=== PATIENT | male | born 1950 | race Caucasian/White ===

== ENCOUNTER → 2016-12-17 | Outpatient (CLI) | payer BC ==
[2016-12-17 10:57] LABS: ALT 132 U/L (21-72); AST 83 U/L (17-59); Alkaline Phosphatase 80 U/L (38-126); Anion Gap 12 mmol/L; Blood Urea Nitrogen 10 mg/dL (9-20); Calcium 9.5 mg/dL (8.4-10.2); Carbon Dioxide 29 mmol/L (22-30); Chloride 102 mmol/L (98-107); Cholesterol 90 mg/dL (<200); Glucose 125 mg/dL (74-99); HDL Cholesterol 26 mg/dL (40-60); Non-African American GFR(MDRD) >60 (>60 ml/min/1.73 sqM); Potassium 4.5 mmol/L (3.5-5.1); Sodium 143 mmol/L (137-145); Total Protein 7.7 g/dL (6.3-8.2); Triglycerides 191 mg/dL (<150)
[2016-12-17 11:13] LABS: Hemoglobin A1C 6.6 % (4.2-6.1)
== END | disposition home or self-care (01) ==
LOC: LABWHC1 10:03
PROVIDERS: ATTEND Internal Medicine Endocrinology, Diabetes & Metabolism
DX: E11.65 Type 2 diabetes mellitus with hyperglycemia (principal); E78.5 Hyperlipidemia, unspecified; I10 Essential (primary) hypertension
CPT/HCPCS: 36415; 80053; 80061; 82043; 83036

== ENCOUNTER → 2017-01-03 | Outpatient (CLI) | payer BC ==
--- NOTE | 2017-01-03 14:51 | PN ---
DATE OF SERVICE: 01/03/2017 A 66-year-old gentleman who has been followed in the Sleep Center for treatment of obstructive sleep apnea-hypopnea syndrome. Patient continued to use his CPAP equipment every night for the whole night. He bought battery pack and even if he traveled he used to take his machine and battery pack with him and continue to use equipment without any significant problem. During previous visit he had some issues related to sinusitis but at that time it was treated and no problem recently. [place] Sleepiness Scale today is 1. MEDICATIONS: Metformin, simvastatin, clonidine, triamterene, amlodipine, benazepril, metoprolol, vitamin D, other vitamin supplements, baby aspirin. During the physical exam, patient in no distress. BP 140/86, HR 63, RR 16, height 70 and 1/2, weight 240.0, BMI 34.0, oxygen saturation at room air 95%. OROPHARYNX: Low position of soft palate. NECK: Supple. No JVD, Thyroid is not palpable. LUNGS: Clear to percussion and to auscultation. Good air exchange. No wheezing or rhonchi. HEART: S1, S2 regular. No murmurs, gallops, or rubs. ABDOMEN: Soft and nontender. Bowel sounds are present. No organomegaly appreciated. MINING TECHNICIAN: Awake, alert, and oriented x3. Cranial nerves 2 to 7 intact. There is no fasciculation or atrophy noted. No focal deficits observed. IMPRESSION: 1. Obstructive sleep apnea-hypopnea syndrome. Patient continued to use his CPAP equipment with a CPAP pressure of 10 cm of water without any problem at the present time. 2. Obesity. 3. Diabetes mellitus. 4. Hyperlipidemia. 5. Hypertension. 6. History of sinusitis. 7. Status post spontaneous pneumothorax at age of 19. PLAN: 1. Continue treatment with CPAP every night for the whole night. 2. Losing weight. Patient lost about 1 pound since previous visit. 3. Sleep hygiene with regular time bed for at least 8 hours. 4. No driving if feeling any sleepiness. 5. We discussed how to use paradoxical intention technique for treatment of some episodes of psychophysiological insomnia when patient sometimes wakes up in the middle of the night and has difficulties to fall asleep again. At the time, I do not think it is necessary to use any additional medications for that reason. Thank you very much for allowing me to participate in the management of your patient. Sincerely, Jean-Paul Herbert MD, PhD, FAASM Diplomat of [place] Board of Sleep Medicine, Sleep Medicine Board by [place] Board [employer] Medical Specialities [place] Board of Internal Medicine Cattle Producers of [facility] [place]
== END | disposition home or self-care (01) ==
LOC: SLEEP 11:23
PROVIDERS: ATTEND Internal Medicine
DX: G47.33 Obstructive sleep apnea (adult) (pediatric) (principal); E66.9 Obesity, unspecified; Z68.34 Body mass index [BMI] 34.0-34.9, adult; E11.9 Type 2 diabetes mellitus without complications; E78.5 Hyperlipidemia, unspecified; I10 Essential (primary) hypertension; Z79.82 Long term (current) use of aspirin; Z79.84 Long term (current) use of oral hypoglycemic drugs; Z79.899 Other long term (current) drug therapy

== ENCOUNTER → 2017-06-17 | Outpatient (CLI) | payer BC ==
[2017-06-17 09:32] LABS: ALT 62 U/L (21-72); AST 37 U/L (17-59); Alkaline Phosphatase 78 U/L (38-126); Anion Gap 12 mmol/L; Blood Urea Nitrogen 13 mg/dL (9-20); Calcium 9.6 mg/dL (8.4-10.2); Carbon Dioxide 26 mmol/L (22-30); Chloride 102 mmol/L (98-107); Cholesterol 117 mg/dL (<200); Glucose 108 mg/dL (74-99); HDL Cholesterol 35 mg/dL (40-60); Non-African American GFR(MDRD) >60 (>60 ml/min/1.73 sqM); Sodium 140 mmol/L (137-145); Total Protein 8.2 g/dL (6.3-8.2)
[2017-06-17 12:02] LABS: Hemoglobin A1C 6.6 % (4.2-6.1)
[2017-06-17 17:18] LABS: Urine Creatinine 21.9 mg/dL
== END | disposition home or self-care (01) ==
LOC: LABWHC1 08:46
PROVIDERS: ATTEND Internal Medicine Endocrinology, Diabetes & Metabolism
DX: E78.5 Hyperlipidemia, unspecified (principal); E11.65 Type 2 diabetes mellitus with hyperglycemia
CPT/HCPCS: 36415; 80053; 80061; 82043; 82570; 83036; 84443

== ENCOUNTER → 2017-07-18 | Outpatient (CLI) | payer BC ==
--- NOTE | 2017-07-18 18:05 | PN ---
PROGRESS NOTE DATE OF SERVICE: 07/18/2017 This patient is a 66-year-old gentleman who has been followed in the sleep center for treatment of obstructive sleep apnea-hypopnea syndrome. The patient continues to use his CPAP equipment every night. [place] Sleepiness Scale today is 0. I checked his CPAP unit. It showed that the patient has been using the equipment 30 out of 30 nights for more than 4 hours. Average usage is 7 hours. CPAP pressure is 9 cm of water. Leak is 11 L/minute, which is in acceptable range. Apnea-hypopnea index is only 0.7, which is totally in normal range. CURRENT MEDICATIONS: 1. Metformin. 2. Simvastatin. 3. Clonidine. 4. Triamterene. 5. Amlodipine. 6. Benazepril. 7. Metoprolol. 8. Vitamin D. 9. Baby aspirin. PHYSICAL EXAM: Pleasant gentleman without distress. VITALS SIGNS: BP 147/78, HR 68, RR 16, height 5 feet 10 inches, weight 238, BMI 34, temperature 97.8, oxygen saturation at room air 98%. HEENT: PERRLA, EOMI. Evaluation of oropharynx showed tongue protrudes midline. Extremely low position of soft palate. NECK: Supple. No JVD. Thyroid is not palpable. LUNGS: Clear to percussion and to auscultation. Good air exchange. No wheezing or rhonchi. HEART: S1, S2 with some irregularities. Slight systolic murmur. ABDOMEN: Obese. EXTREMITIES: No clubbing or cyanosis. DATA REVIEWER: Awake, alert and oriented x3. Cranial nerves 2 to 7 intact. There is no fasciculation or atrophy noted. No focal deficits observed. IMPRESSION: 1. Obstructive sleep apnea-hypopnea syndrome, under control with CPAP at 9 cm of water. Patient demonstrated 100% compliance with treatment, benefitting from treatment. 2. Obesity; BMI 34. 3. Diabetes mellitus. 4. Hypertension. 5. Hyperlipidemia. 6. History of sinusitis. 7. History of pneumothorax in the past. PLAN: 1. Continue treatment with CPAP every night for the whole night. 2. Continue losing weight. At present the patient has lost 2 pounds of weight since previous visit. 3. Sleep hygiene with regular time in bed for at least 8 hours. 4. No driving if feeling sleepiness. 5. Follow-up visit in 1 year or earlier if patient has any problems. Thank you very much for allowing me to participate in management of your patient. Sincerely, Jean-Paul Herbert MD, PhD, FAASM Diplomat of [place] Board of Medical Specialties [place] Board of Internal Medicine Transmission Specialist of [facility] [place] TATIANA / GLENN: [id number] /
== END ==
LOC: SLEEP 13:03
PROVIDERS: ATTEND Internal Medicine
DX: G47.33 Obstructive sleep apnea (adult) (pediatric) (principal); E66.9 Obesity, unspecified; E11.9 Type 2 diabetes mellitus without complications; E78.5 Hyperlipidemia, unspecified; I10 Essential (primary) hypertension; J32.9 Chronic sinusitis, unspecified; J93.9 Pneumothorax, unspecified; Z68.34 Body mass index [BMI] 34.0-34.9, adult; Z79.899 Other long term (current) drug therapy; Z79.82 Long term (current) use of aspirin

== ENCOUNTER → 2017-12-19 | Outpatient (CLI) | payer BC, MEDICARE ==
[2017-12-19 10:13] LABS: ALT 106 U/L (21-72); AST 67 U/L (17-59); Albumin 4.5 g/dL (3.5-5.0); Alkaline Phosphatase 83 U/L (38-126); Anion Gap 13 mmol/L; Blood Urea Nitrogen 12 mg/dL (9-20); Calcium 9.9 mg/dL (8.4-10.2); Carbon Dioxide 28 mmol/L (22-30); Chloride 100 mmol/L (98-107); Cholesterol 135 mg/dL (<200); Glucose 174 mg/dL (74-99); HDL Cholesterol 37 mg/dL (40-60); LDL Cholesterol,Calculated 45 mg/dL (0-99); Potassium 4.4 mmol/L (3.5-5.1); Sodium 141 mmol/L (137-145); Total Bilirubin 1.2 mg/dL (0.2-1.3); Total Protein 7.8 g/dL (6.3-8.2); Triglycerides 266 mg/dL (<150)
[2017-12-19 18:47] LABS: Hemoglobin A1C 7.7 % (4.0-6.0)
== END | disposition home or self-care (01) ==
LOC: LABWHC1 09:27
PROVIDERS: ATTEND Internal Medicine Endocrinology, Diabetes & Metabolism
DX: E11.65 Type 2 diabetes mellitus with hyperglycemia (principal)
CPT/HCPCS: 36415; 80053; 80061; 82043; 82570; 83036; 84443

== ENCOUNTER → 2018-02-06 | Outpatient (CLI) | payer BC, MEDICARE ==
--- NOTE | 2018-02-06 16:04 | PN ---
PROGRESS NOTE DATE OF SERVICE: 02/06/2018 67-year-old gentleman has been followed in Sleep Center for treatment of obstructive sleep apnea-hypopnea syndrome. Patient continued successfully using CPAP equipment every night. No snoring with the machine. [place] Sleepiness Scale is 1. I checked his CPAP unit. Usage is 100% of the time, more than 4 hours. Average usage is 7.0 hours. Leak is 16 L/minute which is acceptable. Apnea-hypopnea index is only 1.9, which is totally normal. CPAP pressure is 9 cm of water. RAMP is off. Humidity is at 4. MEDICATIONS: Metformin, simvastatin, Clonidine, triamterene, amlodipine, benazepril, metoprolol, vitamin D supplement, baby aspirin. PHYSICAL EXAM: Patient in no distress. BP 149/82, HR 74, RR 18, height 5 feet 9 inches and weight 239.4, BMI 34.7, temperature 97.8, oxygen saturation at room air 97%. Extremely low position of soft palate. Abdomen slightly obese. Neck Supple, no JVD. Thyroid is not palpable. LUNGS Clear to percussion and to auscultation. Good air exchange. No wheezing or rhonchi. HEART S1, S2 regular. No murmurs, gallops, or rubs. ABDOMEN Soft and nontender. Bowel sounds are present. No organomegaly appreciated. EXTREMITIES No clubbing or cyanosis. DIET CLERK Awake, alert, and oriented X3. Cranial nerves 2 to 7 intact. There is no fasciculation or atrophy. noted. No focal deficits observed. IMPRESSION: 1. Obstructive sleep apnea-hypopnea syndrome, on full control with CPAP. The patient demonstrated 100% compliance with treatment benefitting from treatment. 2. Obesity, the patient has about the same weight during the last visit. 3. Diabetes mellitus. 4. Hypertension. 5. Hyperlipidemia. 6. History of sinusitis. 7. History of pneumothorax in the past. PLAN: 1. Prescription for all necessary CPAP supplies including mask, tube, filters. 2. Losing weight. 3. Sleep hygiene with regular time in bed for at least 8 hours. Continued to use CPAP equipment every night for the whole night. 4. Precautions related to driving. No driving if feeling sleepiness. Thank you very much for allowing me to participate in management of patient. MMODL / IJN: [id number] /
== END | disposition home or self-care (01) ==
LOC: SLEEP 14:43
PROVIDERS: ATTEND Internal Medicine
DX: G47.33 Obstructive sleep apnea (adult) (pediatric) (principal); E66.9 Obesity, unspecified; E11.9 Type 2 diabetes mellitus without complications; I10 Essential (primary) hypertension; E78.5 Hyperlipidemia, unspecified; Z68.34 Body mass index [BMI] 34.0-34.9, adult; Z87.09 Personal history of other diseases of the respiratory system; Z79.82 Long term (current) use of aspirin; Z79.84 Long term (current) use of oral hypoglycemic drugs; Z79.899 Other long term (current) drug therapy; Z99.89 Dependence on other enabling machines and devices

== ENCOUNTER → 2018-09-06 | Outpatient (CLI) | payer MEDICARE ==
[2018-09-06 16:33] LABS: Albumin 4.8 g/dL (3.80-4.90); Anion Gap 6.5 mmol/L (4.00-12.00); Calcium 9.6 mg/dL (8.7-10.3); Carbon Dioxide 31.5 mmol/L (21.6-31.8); Globulin 2.4 g/dL (2.1-3.7); LDL Cholesterol,Calculated 47.2 mg/dL (0.0-131.0); Potassium 4.4 mmol/L (3.5-5.5); Total Bilirubin 0.9 mg/dL (0.2-1.2); Total Protein 7.2 g/dL (6.2-8.2); VLDL Calculation 23.8 mg/dL (5.00-40.00)
[2018-09-06 20:10] LABS: Hemoglobin A1C 6.1 % (4.0-6.0)
== END | disposition home or self-care (01) ==
LOC: LABWHC1 08:45
PROVIDERS: ATTEND Ophthalmology Ophthalmic Plastic and Reconstructive Surgery
DX: E11.65 Type 2 diabetes mellitus with hyperglycemia (principal); G51.0 Bell's palsy
CPT/HCPCS: 36415; 80053; 80061; 82043; 82570; 82607; 83036; 84443

== ENCOUNTER → 2019-01-19 | Outpatient (CLI) | payer MEDICARE ==
[2019-01-19 16:22] LABS: Albumin 4.8 g/dL (3.80-4.90); Albumin/Globulin Ratio 2.29 (1.60-3.17); Anion Gap 9.7 mmol/L (4.00-12.00); Calcium 9.5 mg/dL (8.7-10.3); Carbon Dioxide 28.3 mmol/L (21.6-31.8); Globulin 2.1 g/dL (1.6-3.3); LDL Cholesterol,Calculated 45.2 mg/dL (0.0-131.0); Potassium 4.2 mmol/L (3.5-5.5); Total Bilirubin 1.2 mg/dL (0.2-1.2); Total Protein 6.9 g/dL (6.2-8.2); VLDL Calculation 30.8 mg/dL (5.00-40.00)
[2019-01-19 16:38] LABS: Hemoglobin A1C 6.6 % (4.0-6.0)
== END ==
LOC: LABWHC1 09:10
PROVIDERS: ATTEND Internal Medicine Endocrinology, Diabetes & Metabolism
DX: E11.9 Type 2 diabetes mellitus without complications (principal)
CPT/HCPCS: 36415; 80053; 80061; 82043; 82570; 83036; 84443

== ENCOUNTER → 2019-02-05 | Outpatient (CLI) | payer MEDICARE ==
--- NOTE | 2019-02-05 12:51 | SFUN ---
SLEEP CENTER FOLLOW UP NOTE DATE OF SERVICE: 02/05/2019 A 68-year-old gentleman who has been followed in the Sleep Center for treatment of obstructive sleep apnea-hypopnea syndrome. Patient continued to use his CPAP equipment every night for the whole night without any significant problems and he is getting his CPAP supplies in time. No snoring with the machine. No significant excessive daytime sleepiness. [place] Sleepiness Scale is 0. I checked his CPAP unit. Usage is 100% of the time more than 4 hours. Reading from the machine /30 nights for every 6.5 hours per night. Leak 22 L/minute, which is borderline. Apnea-hypopnea index is 1.1, which is normal range. MEDICATIONS: Metformin, simvastatin, clonidine, Dyazide which is triamterene hydrochlorothiazide, amlodipine, metoprolol, vitamin D supplement, aspirin, multivitamins, Restasis, eyedrops. PHYSICAL EXAM: Patient in no distress. BP 140/65, HR 57, RR 14, height 5 foot 10-3/4 inches, weight 231.2. Body mass index 32.4, temperature 97.7, oxygen saturation at room air 95%. OROPHARYNX: Extremely low position of soft palate. ABDOMEN: Slightly obese. Neck Supple, no JVD. Thyroid is not palpable. LUNGS Clear to percussion and to auscultation. Good air exchange. No wheezing or rhonchi. HEART S1, S2 regular. No murmurs, gallops, or rubs. EXTREMITIES No clubbing or cyanosis. MANUFACTURING ENGINEER CHIEF Awake, alert, and oriented X3. Cranial nerves 2 to 7 intact. There is no fasciculation or atrophy. noted. No focal deficits observed. IMPRESSION: 1. Obstructive sleep apnea-hypopnea syndrome. Patient demonstrated 100% compliance with treatment, benefitting from treatment. Respiration of full control with CPAP. 2. Obesity, patient lost 8 pounds since previous visit. 3. Diabetes mellitus. 4. Hypertension. 5. Hyperlipidemia. 6. History of sinusitis. 7. History of pneumothorax in the past. PLAN: 1. Patient will continue to use CPAP equipment every night for the whole night. 2. Continue losing weight. 3. Sleep hygiene with regular time in bed for at least 7-1/2 to 8 hours. 4. No driving if feeling sleepiness. 5. Prescription for all necessary CPAP supplies including mask, tube, filters. Thank you very much for allowing me to participate in management of your patient. Sincerely, Jean-Paul Herbert MD, PhD, FAASM Diplomat of [place] Board of Medical Specialties [place] Board of Internal Medicine Peer Educator of [facility] [place] MMCECI / GLENN: [id number] /
== END ==
LOC: SLEEP 11:18
PROVIDERS: ATTEND Internal Medicine
DX: G47.33 Obstructive sleep apnea (adult) (pediatric) (principal); E66.9 Obesity, unspecified; E11.9 Type 2 diabetes mellitus without complications; I10 Essential (primary) hypertension; E78.5 Hyperlipidemia, unspecified; Z87.09 Personal history of other diseases of the respiratory system; Z87.898 Personal history of other specified conditions; Z99.89 Dependence on other enabling machines and devices; Z79.84 Long term (current) use of oral hypoglycemic drugs; Z79.899 Other long term (current) drug therapy; Z79.82 Long term (current) use of aspirin

== ENCOUNTER → 2019-04-28 | Outpatient (CLI) | payer MEDICARE ==
[2019-04-28 12:15] LABS: Basophils # (A) 0.1 k/uL (0-0.2); Basophils % (A) 1 %; Eosinophils # (A) 0.3 k/uL (0-0.7); Eosinophils % (A) 3 %; HCT 48.3 % (39.0-53.0); Lymphocytes # (A) 1.6 k/uL (1.0-4.8); Lymphocytes % (A) 17 %; MCHC 33.1 g/dL (31.0-37.0); MCV 93.6 fL (80.0-100.0); Mean Platelet Volume 7.4; Monocytes # (A) 0.4 k/uL (0-1.0); Monocytes % (A) 5 %; Neutrophils % (A) 74 %; Platelet Count 218 k/uL (150-450); RBC 5.16 m/uL (4.30-5.90); RDW 13.1 % (11.5-15.5); WBC 9.4 k/uL (3.8-10.6)
[2019-04-28 12:59] LABS: Appearance,Urine Clear (Clear); Bilirubin,Urine Negative (Negative); Blood,Urine Negative (Negative); Color,Urine Light Yellow; Glucose,Urine (UA) Negative (Negative); Ketones,Urine Negative (Negative); Leukocyte Esterase,Urine Negative (Negative); Nitrite,Urine Negative (Negative); Protein,Urine Negative (Negative); Specific Gravity,Urine 1.007 (1.001-1.035); Urobilinogen,Urine <2.0 mg/dL (<2.0)
[2019-04-28 16:23] LABS: Iron Saturation 31.91 (15.00-50.00)
[2019-04-28 16:31] LABS: Vitamin D 25 Hydroxy 27.6 ng/mL (30.0-100.0)
[2019-04-28 16:47] LABS: African American GFR (CKD) 102.8 (60.0-200.0); Albumin 4.7 g/dL (3.80-4.90); Albumin/Globulin Ratio 1.68 (1.60-3.17); Anion Gap 10.7 mmol/L (4.00-12.00); BUN/Creat Ratio 16.67 Ratio (12.00-20.00); Calcium 9.8 mg/dL (8.7-10.3); Carbon Dioxide 26.3 mmol/L (21.6-31.8); Globulin 2.8 g/dL (1.6-3.3); LDL Cholesterol,Calculated 45.6 mg/dL (0.0-131.0); Phosphorus 3.6 mg/dL (2.4-5.1); Potassium 4.4 mmol/L (3.5-5.5); Total Bilirubin 1.2 mg/dL (0.3-1.2); Total Protein 7.5 g/dL (6.2-8.2); Uric Acid 6.6 mg/dL (3.7-8.7); VLDL Calculation 29.4 mg/dL (5.00-40.00)
[2019-04-28 17:27] LABS: Parathyroid Hormone Intact 61.2 pg/mL (14.0-72.0)
== END | disposition home or self-care (01) ==
LOC: LABWHC1 10:55
PROVIDERS: ATTEND Internal Medicine
DX: E11.65 Type 2 diabetes mellitus with hyperglycemia (principal); N18.2 Chronic kidney disease, stage 2 (mild); D63.1 Anemia in chronic kidney disease; N39.0 Urinary tract infection, site not specified; R80.9 Proteinuria, unspecified; E55.9 Vitamin D deficiency, unspecified; M10.9 Gout, unspecified; N25.81 Secondary hyperparathyroidism of renal origin; E11.22 Type 2 diabetes mellitus with diabetic chronic kidney disease
CPT/HCPCS: 36415; 80053; 80061; 81003; 82043; 82306; 82570; 82728; 83036; 83540; 83550; 83735; 83970; 84100; 84443; 84550; 85025

== ENCOUNTER → 2019-09-30 | Outpatient (CLI) | payer MEDICARE ==
--- NOTE | 2019-09-30 13:27 | US ---
EXAMINATION TYPE: US kidneys/renal and bladder DATE OF EXAM: 09/30/2019 COMPARISON: NONE CLINICAL HISTORY: N13.30 Unspecified hydronephrosis. Pt states h/o kidney stone, passed in January EXAM MEASUREMENTS: Right Kidney: 12.2 x 5.3 x 5.8 cm Left Kidney: 13.2 x 5.6 x 5.3 cm Right Kidney: Appeared wnl Left Kidney: Cyst upper pole= 1.7 x 1.3 x 1.4 cm/ possible parapelvic cyst= 2.2 x 1.4 x 1.7 cm Bladder: wnl Bilateral Jets seen: Yes Incidental findings gallstones and lobulated prostate Scanning of right kidney shows adjacent heterogeneous hyperechoic liver. Incidental shadowing gallsto ne. No hydronephrosis. Bladder satisfactorily distended. Prostate gland slightly bulging on bladder b ase, correlate clinically for BPH. Bilateral distal jets are seen. Left kidney shows diffuse thin-wal led cysts upper pole level and centrally mid to lower pole level. No hydronephrosis noted. IMPRESSION: No hydronephrosis or shadowing renal calculi identified bilaterally.
== END ==
LOC: RADUSWWP 12:43
PROVIDERS: ATTEND Urology
DX: N13.30 Unspecified hydronephrosis (principal)
CPT/HCPCS: 76770

== ENCOUNTER → 2019-12-14 | Outpatient (CLI) | payer MEDICARE ==
[2019-12-14 17:46] LABS: Chol/HDL Ratio 2.94; LDL Cholesterol,Calculated 38.6 mg/dL (0.0-131.0); VLDL Calculation 31.4 mg/dL (5.00-40.00)
[2019-12-14 17:47] LABS: African American GFR (CKD) 89.9 (60.0-200.0); Albumin 4.8 g/dL (3.80-4.90); Albumin/Globulin Ratio 2.09 (1.60-3.17); Anion Gap 8.9 mmol/L (4.00-12.00); Calcium 10.1 mg/dL (8.7-10.3); Carbon Dioxide 28.1 mmol/L (21.6-31.8); Globulin 2.3 g/dL (1.6-3.3); Non-African American GFR(CKD) 77.5 (60.0-200.0); Potassium 5.2 mmol/L (3.5-5.5); Total Bilirubin 0.7 mg/dL (0.2-1.2); Total Protein 7.1 g/dL (6.2-8.2)
[2019-12-14 20:41] LABS: Urine Creatinine 52.2 mg/dL
== END | disposition home or self-care (01) ==
LOC: LABWHC1 10:44
PROVIDERS: ATTEND Internal Medicine Endocrinology, Diabetes & Metabolism
DX: E11.9 Type 2 diabetes mellitus without complications (principal)
CPT/HCPCS: 36415; 80053; 80061; 82043; 82570; 83036; 84443

== ENCOUNTER → 2020-08-25 | Outpatient (CLI) | payer MEDICARE ==
--- NOTE | 2020-08-25 20:29 | SFUN ---
SLEEP CENTER FOLLOW UP NOTE DATE OF SERVICE: 08/25/2020 This 69-year-old gentleman has been followed in Sleep Center for treatment of obstructive sleep apnea-hypopnea syndrome. The patient is successfully continuing to use his CPAP equipment every night. Sometimes recently he has started to wake up in the morning hours and has difficulties falling asleep again. He may to watch TV at that time and then goes to bed later. [place] Sleepiness Scale is only 1. I checked his CPAP unit. CPAP pressure is 9 cm of water. Usage is 30/30 nights for more than 4 hours with average usage 6.7 hours per night. Leak is 19 L/minute. Apnea- hypopnea index is only 0.8, which is within normal range. Current medications are: 1. Metformin ER 500 mg twice a day. 2. Simvastatin 20 mg once a day. 3. Clonidine 0.1 mg twice a day. 4. Triamterene hydrochlorothiazide 0.375/25 mg once a day 3 times a week. 5. Amlodipine and benazepril 10 mg-20 mg once a day. 6. Metoprolol ER 100 mg once a day. 7. Vitamin D 2000 units once a day. 8. Vitamin C 1000 mg once a day. 9. Multivitamins. 10.Aspirin 81 mg once a day. PHYSICAL EXAMINATION: GENERAL: A pleasant patient in no distress. VITAL SIGNS: BP 147/73, HR 68, RR 15, height 5 feet 11 inches, weight 226 pounds, BMI 31.5, temperature 97.6, oxygen saturation at room air 98%. HEENT: PERRLA, EOMI. Evaluation of oropharynx showed tongue protrudes midline. Extremely low position of soft palate. Mallampati IV. NECK: Supple. No JVD. Thyroid is not palpable. LUNGS: Clear to percussion and to auscultation. Good air exchange. No wheezing or rhonchi. HEART: S1, S2 regular. No murmurs, gallops or rubs. ABDOMEN: Slightly obese. EXTREMITIES: No clubbing or cyanosis. DEVELOPMENT OFFICER: Awake, alert, and oriented X3. Cranial nerves 2 to 7 intact. There is no fasciculation or atrophy. noted. No focal deficits observed. IMPRESSION: 1. Obstructive sleep apnea-hypopnea syndrome. The patient demonstrated 100% compliance with treatment, benefitting from treatment. 2. Hypertension. 3. Diabetes mellitus. 4. Hyperlipidemia. 5. Obesity. 6. History of sinusitis. 7. History of pneumothorax in the past. PLAN: 1. I will increase pressure in CPAP unit to 10 cm of water. 2. Patient will continue to use PAP equipment every night for the whole night. 3. Sleep hygiene with regular time in bed for at least 7-1/2 to 8 hours. 4. Precautions related to driving. No driving if feeling sleepiness. 5. I will maintain all necessary prescription for PAP supplies including mask, tube, filters. 6. Watching weight. 7. Follow-up visit in 6 months or earlier if patient has any problems. Thank you very much for allowing me to participate in the management of your patient. Sincerely, Jean-Paul Herbert MD, PhD, FAASM Diplomat of [place] Board of Medical Specialties [place] Board of Internal Medicine Precision Thread Grinder Operator of [facility] [place] MMMERL / YVONNEN: [id number] /
== END | disposition home or self-care (01) ==
LOC: SLEEP 14:31
PROVIDERS: ATTEND Internal Medicine
DX: G47.33 Obstructive sleep apnea (adult) (pediatric) (principal); I10 Essential (primary) hypertension; E11.9 Type 2 diabetes mellitus without complications; E78.5 Hyperlipidemia, unspecified; E66.9 Obesity, unspecified; Z87.09 Personal history of other diseases of the respiratory system; Z79.84 Long term (current) use of oral hypoglycemic drugs; Z79.899 Other long term (current) drug therapy; Z79.82 Long term (current) use of aspirin; Z99.89 Dependence on other enabling machines and devices

== ENCOUNTER → 2021-03-09 | Outpatient (CLI) | payer MEDICARE ==
--- NOTE | 2021-03-09 22:37 | SFUN ---
SLEEP CENTER FOLLOW UP NOTE DATE OF SERVICE: 03/09/2021 This 70-year-old gentleman has been followed in Sleep Center for treatment of obstructive sleep apnea-hypopnea syndrome. The patient continues to use his CPAP equipment every night for the whole night. He does not complain of any problems at the present time related to mask fitting, pressure or humidification. [place] Sleepiness Scale today is 2, which is perfect. I checked his CPAP unit. CPAP pressure is 10 cm of water. Usage is 30/30 nights for more than 4 hours. Average usage is 6.8 hours per night. Leak is 29 L/minute, which is slightly high. Apnea-hypopnea index is 1.0, which is perfect. MEDICATIONS: 1. Metformin extended-release 500 mg twice a day. 2. Simvastatin 20 mg once a day. 3. Clonidine 0.1 mg twice a day. 4. Triamterene/hydrochlorothiazide /25 mg 3 times a week. 5. Amlodipine benazepril 10/20 mg once a day. 6. Metoprolol 100 mg once a day. Vitamins D, C, multivitamins. 7. Aspirin 81 mg once a day. PHYSICAL EXAMINATION: GENERAL: A pleasant patient in no distress. VITAL SIGNS: BP 162/76, HR 64, RR 15, height 5 feet 11 inches, weight 233.2, temperature 97.2, oxygen saturation at room air 95%. HEENT: PERRLA, EOMI. Evaluation of oropharynx showed tongue protrudes midline. Extremely low position of soft palate. Mallampati IV. NECK: Supple. No JVD. Thyroid is not palpable. LUNGS: Clear to percussion and to auscultation. Good air exchange. No wheezing or rhonchi. HEART: S1, S2 regular. No murmurs, gallops or rubs. ABDOMEN: Soft and nontender. Bowel sounds are present. No organomegaly appreciated. EXTREMITIES: No clubbing or cyanosis. FLOOR SERVICE WORKER SPRING: Awake, alert, and oriented X3. Cranial nerves 2 to 7 intact. There is no fasciculation or atrophy. noted. No focal deficits observed. IMPRESSION: 1. Obstructive sleep apnea-hypopnea syndrome. Patient demonstrated 100% compliance with treatment, benefitting from treatment. 2. Hypertension. 3. Diabetes mellitus. 4. Obesity. 5. Hyperlipidemia. 6. History of sinusitis. 7. History of pneumothorax in the past. 8. I extensively discussed with the patient regulation of sleep schedule by light and darkness. 9. Also the patient should use ear plugs; sometimes awakening secondary to noise. Thank you very much for allowing me to participate in the management of your patient. Sincerely, Jean-Paul Herbert MD, PhD, FAASM Diplomat of [place] Board of Medical Specialties [place] Board of Internal Medicine Director Data Management of [facility] [place] MMODL / YVONNEN: [id number] /
== END ==
LOC: SLEEP 14:08
PROVIDERS: ATTEND Internal Medicine
DX: G47.33 Obstructive sleep apnea (adult) (pediatric) (principal); I10 Essential (primary) hypertension; E11.9 Type 2 diabetes mellitus without complications; E66.9 Obesity, unspecified; E78.5 Hyperlipidemia, unspecified; Z87.09 Personal history of other diseases of the respiratory system; Z79.84 Long term (current) use of oral hypoglycemic drugs; Z79.899 Other long term (current) drug therapy

== ENCOUNTER → 2021-10-24 | Outpatient (CLI) | payer MEDICARE ==
--- NOTE | 2021-10-24 14:53 | SFUN ---
SLEEP CENTER FOLLOW UP NOTE DATE OF SERVICE: 10/24/2021. 70-year-old gentleman has been followed in Sleep Center for treatment of obstructive sleep apnea-hypopnea syndrome. Recently the patient's machine has been replaced and this is his first visit on the new machine. The patient described that new machine is noisy according to his and otherwise, he is using machine every night. [place] Sleepiness Scale is 1. I checked the CPAP unit, pressure is 10 cm of water. Usage is 30/30 nights and 29/30 30 nights for more than 4 hours. Average usage 6.8 hours per night which is good compliance. Leak is 22 L/minute, which is borderline. Apnea-hypopnea index is 1.2 which is normal. CURRENT MEDICATIONS: Metformin 500 mg twice a day, simvastatin 20 mg once a day, clonidine 0.1 mg twice a day, triamterene hydrochlorothiazide 0.3 75-25 mg 3 times a week, amlodipine benazepril 10/20 mg once a day, metoprolol extended release 100 mg once a day, aspirin 81 mg once a day, Restasis, vitamin supplement. PHYSICAL EXAMINATION: GENERAL: Patient in no distress. BP 153/80, HR 59, RR 15, height 5 feet 10 inches 1/2, weight 228.6, temperature 97.3, body mass index 32.2, oxygen saturation at room air 98%. Oropharynx: Extremely low position of soft of soft palate, Mallampati 4. NECK: Supple, no JVD. Thyroid is not palpable. LUNGS: Clear to percussion and to auscultation. Good air exchange. No wheezing or rhonchi. HEART: S1, S2 regular. No murmurs, gallops, or rubs. ABDOMEN: Soft and nontender. Bowel sounds are present. No organomegaly appreciated. EXTREMITIES: No clubbing or cyanosis. SOLE ROUNDER: Awake, alert, and oriented X3. Cranial nerves 2 to 7 intact. There is no fasciculation or atrophy. noted. No focal deficits observed. IMPRESSION: 1. Obstructive sleep apnea-hypopnea syndrome. Patient demonstrated great compliance with treatment, benefitting from treatment. The machine is noisy according to patient and family. The patient is using new machine which he received recently. 2. Hypertension. 3. Diabetes mellitus. 4. Obesity. 5. History of sinusitis. 6. History of pneumothorax in the past. 7. Hyperlipidemia. PLAN: 1. Prescription to check, fix or replace machine if necessary because of noise. 2. Patient will continue to use PAP equipment every night for the whole night. 3. Sleep hygiene with regular time in bed for at least 7-1/2 to 8 hours. 4. Precautions related to driving. No driving if feeling sleepiness. 5. I will maintain all necessary prescription for PAP supplies including mask, tube, filters. 6. Watching weight. 7. Follow-up visit in 6 months or earlier if patient has any problems. Thank you very much for allowing me to participate in the management of your patient. Sincerely, Jean-Paul Herbert MD, PhD, FAASM Diplomat of [place] Board of Medical Specialties Sleep Medicine Board of [place] Board of Internal Medicine Press Washer of [facility] [place] MMMERL / GLENN: [id number] /
== END | disposition home or self-care (01) ==
LOC: SLEEP 11:13
PROVIDERS: ATTEND Internal Medicine
DX: G47.33 Obstructive sleep apnea (adult) (pediatric) (principal); I10 Essential (primary) hypertension; E66.9 Obesity, unspecified; E11.9 Type 2 diabetes mellitus without complications; E78.5 Hyperlipidemia, unspecified

== ENCOUNTER → 2022-04-18 | Outpatient (CLI) | payer MEDICARE ==
--- NOTE | 2022-04-18 13:34 | P.PN ---
Subjective DATE: 04/18/2022 FOLLOW UP VISIT. Patient with obstructive sleep apnea hypopnea syndrome return to sleep center for follow-up visit. Patient is using PAP equipment every night for the whole night, getting PAP supplies in time. The patient does not have significant problems with the mask, PAP unit and humidification. [place] sleepiness scale is 1. I checked information from PAP unit. PAP unit pressure 10 cm H2O. Usage is 100 % for more then 4 hours, average 7 hours per night. Leak is 20l/m, which is in acceptable range. Apnea Hypopnea Index is 1.1, which is normal. MEDICATIONS:1. Metformin 500 mg twice a day 2. Simvastatin 10 mg once a day 3. Clonidine 0.2 mg twice a day 4. 3) hydrochlorothiazide 0.3 7525 milligrams once a day 5. Amlodipine/Benazepril 10/20 milligrams once a day 6. Toprol 100 mg once a day 7. Restasis eyedrops During physical exam: GENERAL: A pleasant patient without any distress. VITAL SIGNS: BP 144/97, HR 56, RR 16, weight to 227, temperature 98.1, oxygen saturation at room air 97%. HEENT: PERRLA, EOMI.low position of soft palate, Mallapati 4. NECK: Supple. No JVD. LUNGS: Clear to percussion and to auscultation. Good air exchange. No wheezing or rhonchi. HEART: S1, S2 regular. ABDOMEN: Soft and nontender.[] EXTREMITIES: No clubbing or cyanosis. OPERATIONS PROFESSIONAL: Awake, alert, and oriented x3. No focal deficit. Impressions: 1. Obstructive sleep apnea-hypopnea syndrome. Patient demonstrated great compliance with treatment, benefiting from treatment. 2. Hypertension. 3. Diabetes mellitus. 4. History of pneumothorax in the past. 5. Obesity. 6. Hyperlipidemia. Plan: 1. Continue using PAP equipment every night for the whole night. 2. To change air filter at least 1-2 times per month. 3. PAP unit should stay lower then position of the head. 4. Advised patient to remove all remaining water from humidifier canister daily and make it dry after each usage. Refill canister with fresh distilled water before each usage. 5. Sleep hygiene with regular time in bed for at least 8 hours. 6. Precautions related to driving. No driving if feel any sleepiness. 7. I will maintain prescription for PAP supplies including mask, tube, filters. 8. Follow up visit in 6 months or earlier if patient has any problems. 9. Watching weight. Thank you very much for allowing me to participate in the management of your patient. Jean-Paul Herbert MD, PhD, FAASM. Diplomat of [place] Board of Sleep Medicine, Sleep Medicine Board by [place] Board of Internal Medicine Lead Furnace Operator of [facility] [place]
== END ==
LOC: SLEEP 13:00
PROVIDERS: ATTEND Internal Medicine
DX: G47.33 Obstructive sleep apnea (adult) (pediatric) (principal); E11.9 Type 2 diabetes mellitus without complications; E66.9 Obesity, unspecified; E78.5 Hyperlipidemia, unspecified; I10 Essential (primary) hypertension; Z79.84 Long term (current) use of oral hypoglycemic drugs; Z79.899 Other long term (current) drug therapy; Z91.012 Allergy to eggs; Z99.89 Dependence on other enabling machines and devices

== ENCOUNTER → 2023-12-12 | Outpatient (CLI) | payer MEDICARE ==
--- NOTE | 2023-12-12 11:32 | P.PN ---
Subjective DATE: 12/12/2023 FOLLOW UP VISIT. Patient with obstructive sleep apnea hypopnea syndrome return to sleep center for follow-up visit. Information from previous visit have been reviewed. Patient is using PAP equipment every night for the whole night, getting PAP supplies in time. The patient does not have significant problems with the mask, PAP unit and humidification. [place] sleepiness scale is, which is normal. I checked information from PAP unit. PAP unit pressure 10 cm H2O. Usage is 100 % for more then 4 hours, average 6.6 hours per night. Leak is 26 l/m, which is in acceptable range. Apnea Hypopnea Index is 1.4, which is normal. MEDICATIONS:1. Simvastatin 10 mg once a day 2. Clonidine 0.2 mg twice a day 3. Metoprolol 100 mg once a day 4. Amlodipine/benazepril 10/20 mg once a day 5. Triamterene/hydrochlorothiazide 6. B12 supplement During physical exam: GENERAL: A pleasant patient without any distress. VITAL SIGNS: BP 145/88, HR 76, RR 18 , weight 224.6, temperature 98.2, oxygen saturation at room air 97 % . HEENT: PERRLA, EOMI.low position of soft palate, Mallapati 4 . NECK: Supple. No JVD. LUNGS: Clear to percussion and to auscultation. Good air exchange. No wheezing or rhonchi. HEART: S1, S2 regular. ABDOMEN: Soft and nontender.[] EXTREMITIES: No clubbing or cyanosis. [employer] INST[employer]ER: Awake, alert, and oriented x3. No focal deficit. Impressions: 1. Obstructive sleep apnea-hypopnea syndrome. Patient demonstrated great compliance with treatment, benefiting from treatment. 2. Diabetes mellitus, recent hemoglobin A1c according to patient 6.4. 3. Hypertension. 4. History of pneumothorax in the past. 5. Mild obesity. 6. Hyperlipidemia. Plan: 1. Continue using PAP equipment every night for the whole night. 2. To change air filter at least 1-2 times per month. 3. PAP unit should stay lower then position of the head. 4. Advised patient to remove all remaining water from humidifier canister daily and make it dry after each usage. Refill canister with fresh distilled water before each usage. 5. Sleep hygiene with regular time in bed for at least 8 hours. 6. Precautions related to driving. No driving if feel any sleepiness. 7. I will maintain prescription for PAP supplies including mask, tube, filters. 8. Follow up visit in 6 months or earlier if patient has any problems. 9. Watching and losing weight. Thank you very much for allowing me to participate in the management of your patient. Jean-Paul Herbert MD, PhD, FAASM. Diplomat of [employer] [employer], Sleep Medicine Board by [place] [facility]
== END ==
LOC: 3 N SLEEP 10:55
PROVIDERS: ATTEND Internal Medicine
DX: G47.33 Obstructive sleep apnea (adult) (pediatric) (principal); E11.9 Type 2 diabetes mellitus without complications; I10 Essential (primary) hypertension; E66.9 Obesity, unspecified; E78.5 Hyperlipidemia, unspecified; Z87.09 Personal history of other diseases of the respiratory system; Z99.89 Dependence on other enabling machines and devices; Z79.899 Other long term (current) drug therapy; Z91.012 Allergy to eggs; Z79.84 Long term (current) use of oral hypoglycemic drugs; Z79.82 Long term (current) use of aspirin
CPT/HCPCS: 99212